=== PATIENT | female | born 1975 | race Caucasian/White ===

== ENCOUNTER 2017-01-06 08:54 | Day surgery (SDC) | payer OTHER ==
[~2017-01-06] VITALS: Ht 154.9 cm; Wt 66.2 kg
[2017-01-06 09:34] VITALS: BP 107/62
[2017-01-06 14:13] VITALS: BP 102/73
== END 2017-01-06 13:15 | disposition home or self-care (01) ==
LOC: GI 08:54 → OR 11:30 → GI 11:30 → OR 12:30 → GI 13:15
PROVIDERS: Internal Medicine Gastroenterology
PROC: 0DJD8ZZ Inspection of Lower Intestinal Tract, Via Natural or Artificial Opening Endoscopic (ICD-10-PCS; principal; 2017-01-06 11:30)
DX: Z12.11 Encounter for screening for malignant neoplasm of colon (principal); Z80.0 Family history of malignant neoplasm of digestive organs
CPT/HCPCS: 45378; J1200; J2250; J2310; J3010